=== PATIENT | female | born 1955 ===

== ENCOUNTER 2024-07-04 03:00 | Outpatient (CLI) | payer MEDICARE, SELFPAY ==
[2024-07-04 07:38] LABS: Abs Immature Grans 0.03 10^3/uL (0.0-0.06); Absolute Basophil Count 0.04 10^3/uL (0.0-0.2); Absolute Eosinophil Count 0.14 10^3/uL (0.0-0.7); Absolute Lymphocyte Count 0.36 10^3/uL (1.2-3.4); Absolute Monocyte Count 0.36 10^3/uL (0.1-0.8); Absolute Neutrophil Count 3.18 10^3/uL (1.2-6.7); Eosinophils % 3.4 %; HCT 42.2 % (36.0-46.0); HGB 13.7 g/dL (11.2-15.7); Immature Grans % 0.7 %; Lymphocytes % 8.8 %; MCH 30.4 pg (27.0-33.0); MCHC 32.5 % (32.0-36.0); MCV 94 fL (80-95); MPV 9.9 fL (8.0-11.0); Monocytes % 8.8 %; Neutrophils % 77.3 %; Platelet Count 283 10^3/uL (130-400); RBC 4.51 10^6/uL (3.93-5.22); RDW-SD 44.5 fL; WBC 4.11 10^3/uL (4.4-10.8)
[2024-07-04 08:01] LABS: ALT 27 U/L (14-59); AST 16 U/L (15-37); Albumin 3.9 g/dL (3.4-5.0); Alkaline Phosphatase 91 U/L (46-116); Anion Gap 6.1 mmol/L (3-11); BUN 11 mg/dL (7-18); Bilirubin, Total 0.3 mg/dL (0.2-1.0); CO2 29.9 mmol/L (21.0-32.0); CREATININE 0.9 mg/dL (0.55-1.02); Calcium 9.4 mg/dL (8.5-10.1); Chloride 108 mmol/L (98-107); Estimated GFR 70.07 (mL/min/1.73m2); Glucose 99 mg/dL (74-106); Magnesium 2.2 mg/dL (1.8-2.4); Potassium 4.3 mmol/L (3.5-5.1); Sodium 144 mmol/L (136-145); TSH 2.06 uIU/mL (0.36-3.74); Total Protein 7.3 g/dL (6.4-8.2)
[2024-07-04 18:32] LABS: T4, Free 1.1 ng/dL (0.8-2.2)
== END 2024-07-04 03:01 | disposition home or self-care (01) ==
PROVIDERS: Visit Provider Internal Medicine Medical Oncology
DX: Z79.899 Other long term (current) drug therapy (principal); C92.10 Chronic myeloid leukemia, BCR/ABL-positive, not having achieved remission; C34.92 Malignant neoplasm of unspecified part of left bronchus or lung; C79.31 Secondary malignant neoplasm of brain
CPT/HCPCS: 36415; 80053; 81206; 83735; 84439; 84443; 85025

== ENCOUNTER 2024-07-24 09:18 | Outpatient (CLI) | payer MEDICARE, SELFPAY ==
[2024-07-24 09:24] LABS: Abs Immature Grans 0.04 10^3/uL (0.0-0.06); Absolute Basophil Count 0.03 10^3/uL (0.0-0.2); Absolute Eosinophil Count 0.08 10^3/uL (0.0-0.7); Absolute Lymphocyte Count 0.26 10^3/uL (1.2-3.4); Absolute Monocyte Count 0.71 10^3/uL (0.1-0.8); Absolute Neutrophil Count 2.97 10^3/uL (1.2-6.7); Basophils % 0.7 %; HCT 34.6 % (36.0-46.0); HGB 11.4 g/dL (11.2-15.7); Lymphocytes % 6.4 %; MCH 31.1 pg (27.0-33.0); MCHC 32.9 % (32.0-36.0); MCV 95 fL (80-95); MPV 9.3 fL (8.0-11.0); Monocytes % 17.4 %; Neutrophils % 72.5 %; Platelet Count 286 10^3/uL (130-400); RBC 3.66 10^6/uL (3.93-5.22); RDW 13.7 % (11.7-14.6); RDW-SD 45.3 fL; WBC 4.09 10^3/uL (4.4-10.8)
[2024-07-24 09:48] LABS: ALT 36 U/L (14-59); AST 22 U/L (15-37); Albumin 3.5 g/dL (3.4-5.0); Alkaline Phosphatase 111 U/L (46-116); Anion Gap 10.1 mmol/L (3-11); BUN 8 mg/dL (7-18); Bilirubin, Total 0.3 mg/dL (0.2-1.0); CO2 28.9 mmol/L (21.0-32.0); CREATININE 0.8 mg/dL (0.55-1.02); Calcium 9.7 mg/dL (8.5-10.1); Chloride 104 mmol/L (98-107); Estimated GFR 80.71 (mL/min/1.73m2); Glucose 111 mg/dL (74-106); Sodium 143 mmol/L (136-145); TSH 2.07 uIU/mL (0.36-3.74); Total Protein 7.3 g/dL (6.4-8.2)
== END 2024-07-24 09:19 | disposition home or self-care (01) ==
LOC: LBO 09:19
PROVIDERS: Visit Provider Internal Medicine Medical Oncology
DX: Z79.899 Other long term (current) drug therapy (principal); C34.92 Malignant neoplasm of unspecified part of left bronchus or lung; C79.31 Secondary malignant neoplasm of brain
CPT/HCPCS: 36415; 80053; 83735; 84439; 84443; 85025

== ENCOUNTER 2024-08-14 03:22 | Outpatient (CLI) | payer MEDICARE, SELFPAY ==
[2024-08-14 09:05] LABS: Abs Immature Grans 0.02 10^3/uL (0.0-0.06); Absolute Basophil Count 0.03 10^3/uL (0.0-0.2); Absolute Eosinophil Count 0.08 10^3/uL (0.0-0.7); Absolute Lymphocyte Count 0.24 10^3/uL (1.2-3.4); Absolute Monocyte Count 0.48 10^3/uL (0.1-0.8); Absolute Neutrophil Count 2.16 10^3/uL (1.2-6.7); Eosinophils % 2.7 %; HCT 32.5 % (36.0-46.0); HGB 10.5 g/dL (11.2-15.7); Immature Grans % 0.7 %; MCHC 32.3 % (32.0-36.0); MCV 99 fL (80-95); MPV 8.6 fL (8.0-11.0); Monocytes % 15.9 %; Neutrophils % 71.7 %; Platelet Count 284 10^3/uL (130-400); RBC 3.28 10^6/uL (3.93-5.22); RDW 16.1 % (11.7-14.6); RDW-SD 55.8 fL; WBC 3.01 10^3/uL (4.4-10.8)
[2024-08-14 09:38] LABS: ALT 27 U/L (14-59); AST 19 U/L (15-37); Albumin 3.5 g/dL (3.4-5.0); Alkaline Phosphatase 90 U/L (46-116); Anion Gap 5.8 mmol/L (3-11); BUN 11 mg/dL (7-18); Bilirubin, Total 0.2 mg/dL (0.2-1.0); CO2 30.2 mmol/L (21.0-32.0); CREATININE 0.8 mg/dL (0.55-1.02); Calcium 9.3 mg/dL (8.5-10.1); Chloride 105 mmol/L (98-107); Estimated GFR 80.71 (mL/min/1.73m2); FREE T4 0.89 ng/dL (0.76-1.46); Glucose 90 mg/dL (74-106); Magnesium 1.9 mg/dL (1.8-2.4); Potassium 4.2 mmol/L (3.5-5.1); Sodium 141 mmol/L (136-145); TSH 2.53 uIU/mL (0.36-3.74)
== END 2024-08-14 03:23 | disposition home or self-care (01) ==
LOC: LBO 03:22
PROVIDERS: Visit Provider Internal Medicine Medical Oncology
DX: Z79.899 Other long term (current) drug therapy (principal); C34.92 Malignant neoplasm of unspecified part of left bronchus or lung; C79.31 Secondary malignant neoplasm of brain
CPT/HCPCS: 36415; 80053; 83735; 84439; 84443; 85025

== ENCOUNTER 2024-09-04 04:36 | Outpatient (CLI) | payer MEDICARE, SELFPAY ==
[2024-09-04 09:08] LABS: Abs Immature Grans 0.02 10^3/uL (0.0-0.06); Absolute Basophil Count 0.03 10^3/uL (0.0-0.2); Absolute Eosinophil Count 0.12 10^3/uL (0.0-0.7); Absolute Lymphocyte Count 0.25 10^3/uL (1.2-3.4); Absolute Monocyte Count 0.45 10^3/uL (0.1-0.8); Absolute Neutrophil Count 2.64 10^3/uL (1.2-6.7); Basophils % 0.9 %; Eosinophils % 3.4 %; HCT 34.6 % (36.0-46.0); HGB 11.4 g/dL (11.2-15.7); Immature Grans % 0.6 %; Lymphocytes % 7.1 %; MCH 31.8 pg (27.0-33.0); MCHC 32.9 % (32.0-36.0); MCV 97 fL (80-95); MPV 9.2 fL (8.0-11.0); Monocytes % 12.8 %; Neutrophils % 75.2 %; Platelet Count 314 10^3/uL (130-400); RBC 3.58 10^6/uL (3.93-5.22); RDW 14.7 % (11.7-14.6); RDW-SD 52.9 fL; WBC 3.51 10^3/uL (4.4-10.8)
[2024-09-04 09:34] LABS: ALT 20 U/L (14-59); AST 21 U/L (15-37); Albumin 3.7 g/dL (3.4-5.0); Alkaline Phosphatase 89 U/L (46-116); Anion Gap 7.1 mmol/L (3-11); BUN 10 mg/dL (7-18); Bilirubin, Total 0.4 mg/dL (0.2-1.0); CO2 28.9 mmol/L (21.0-32.0); Calcium 9.5 mg/dL (8.5-10.1); Chloride 104 mmol/L (98-107); Estimated GFR 61.75 (mL/min/1.73m2); FREE T4 1.08 ng/dL (0.76-1.46); Glucose 101 mg/dL (74-106); Potassium 3.9 mmol/L (3.5-5.1); Sodium 140 mmol/L (136-145); TSH 2.07 uIU/mL (0.36-3.74); Total Protein 7.5 g/dL (6.4-8.2)
== END 2024-09-04 04:37 | disposition home or self-care (01) ==
LOC: LBO 04:36
PROVIDERS: Visit Provider Internal Medicine Medical Oncology
DX: Z79.899 Other long term (current) drug therapy (principal); C34.92 Malignant neoplasm of unspecified part of left bronchus or lung; C79.31 Secondary malignant neoplasm of brain
CPT/HCPCS: 36415; 80053; 83735; 84439; 84443; 85025

== ENCOUNTER 2024-09-25 13:21 | Outpatient (CLI) | payer MEDICARE, SELFPAY ==
[2024-09-25 13:18] LABS: Abs Immature Grans 0.03 10^3/uL (0.0-0.06); Absolute Basophil Count 0.04 10^3/uL (0.0-0.2); Absolute Lymphocyte Count 0.38 10^3/uL (1.2-3.4); Absolute Neutrophil Count 4.06 10^3/uL (1.2-6.7); Basophils % 0.8 %; Eosinophils % 3.8 %; HCT 34.3 % (36.0-46.0); HGB 11.1 g/dL (11.2-15.7); Immature Grans % 0.6 %; Lymphocytes % 7.3 %; MCH 30.8 pg (27.0-33.0); MCHC 32.4 % (32.0-36.0); MCV 95 fL (80-95); MPV 9.9 fL (8.0-11.0); Monocytes % 9.6 %; Neutrophils % 77.9 %; Platelet Count 348 10^3/uL (130-400); RDW 13.2 % (11.7-14.6); RDW-SD 46.3 fL; WBC 5.21 10^3/uL (4.4-10.8)
[2024-09-25 13:56] LABS: ALT 23 U/L (14-59); AST 25 U/L (15-37); Albumin 3.7 g/dL (3.4-5.0); Alkaline Phosphatase 86 U/L (46-116); Anion Gap 11.8 mmol/L (3-11); BUN 14 mg/dL (7-18); Bilirubin, Total 0.3 mg/dL (0.2-1.0); CO2 28.2 mmol/L (21.0-32.0); CREATININE 1.5 mg/dL (0.55-1.02); Calcium 8.9 mg/dL (8.5-10.1); Chloride 103 mmol/L (98-107); Estimated GFR 37.96 (mL/min/1.73m2); FREE T4 1.04 ng/dL (0.76-1.46); Glucose 103 mg/dL (74-106); Magnesium 1.8 mg/dL (1.8-2.4); Potassium 3.2 mmol/L (3.5-5.1); Sodium 143 mmol/L (136-145); TSH 2.24 uIU/mL (0.36-3.74); Total Protein 7.6 g/dL (6.4-8.2)
== END 2024-09-25 13:22 | disposition home or self-care (01) ==
LOC: LBO 13:22
PROVIDERS: Visit Provider Internal Medicine Medical Oncology
DX: Z79.899 Other long term (current) drug therapy (principal); C34.92 Malignant neoplasm of unspecified part of left bronchus or lung; C79.31 Secondary malignant neoplasm of brain
CPT/HCPCS: 36415; 80053; 83735; 84439; 84443; 85025

== ENCOUNTER 2024-10-16 12:28 | Outpatient (CLI) | payer MEDICARE, SELFPAY ==
[2024-10-16 12:36] LABS: Abs Immature Grans 0.02 10^3/uL (0.0-0.06); Absolute Basophil Count 0.04 10^3/uL (0.0-0.2); Absolute Eosinophil Count 0.33 10^3/uL (0.0-0.7); Absolute Lymphocyte Count 0.37 10^3/uL (1.2-3.4); Absolute Monocyte Count 0.49 10^3/uL (0.1-0.8); Absolute Neutrophil Count 3.54 10^3/uL (1.2-6.7); Basophils % 0.8 %; Eosinophils % 6.9 %; HCT 31.7 % (36.0-46.0); HGB 10.3 g/dL (11.2-15.7); Immature Grans % 0.4 %; Lymphocytes % 7.7 %; MCH 30.8 pg (27.0-33.0); MCHC 32.5 % (32.0-36.0); MCV 95 fL (80-95); MPV 9.6 fL (8.0-11.0); Monocytes % 10.2 %; Platelet Count 266 10^3/uL (130-400); RBC 3.34 10^6/uL (3.93-5.22); RDW 12.6 % (11.7-14.6); WBC 4.79 10^3/uL (4.4-10.8)
[2024-10-16 13:09] LABS: ALT 26 U/L (14-59); AST 19 U/L (15-37); Albumin 3.6 g/dL (3.4-5.0); Alkaline Phosphatase 73 U/L (46-116); Anion Gap 8.9 mmol/L (3-11); BUN 16 mg/dL (7-18); Bilirubin, Total 0.3 mg/dL (0.2-1.0); CO2 28.1 mmol/L (21.0-32.0); CREATININE 1.3 mg/dL (0.55-1.02); Calcium 8.7 mg/dL (8.5-10.1); Chloride 103 mmol/L (98-107); Estimated GFR 45.07 (mL/min/1.73m2); FREE T4 1.02 ng/dL (0.76-1.46); Glucose 107 mg/dL (74-106); Magnesium 1.7 mg/dL (1.8-2.4); Potassium 3.3 mmol/L (3.5-5.1); Sodium 140 mmol/L (136-145); TSH 2.46 uIU/mL (0.36-3.74); Total Protein 7.1 g/dL (6.4-8.2)
== END 2024-10-16 12:29 | disposition home or self-care (01) ==
LOC: LBO 12:28
PROVIDERS: Visit Provider Internal Medicine Medical Oncology
DX: Z79.899 Other long term (current) drug therapy (principal); C34.92 Malignant neoplasm of unspecified part of left bronchus or lung; C79.31 Secondary malignant neoplasm of brain
CPT/HCPCS: 36415; 80053; 83735; 84439; 84443; 85025

== ENCOUNTER 2024-11-06 03:01 | Outpatient (CLI) | payer MEDICARE, SELFPAY ==
[2024-11-06 10:28] LABS: Abs Immature Grans 0.01 10^3/uL (0.0-0.06); HCT 32.9 % (36.0-46.0); HGB 10.5 g/dL (11.2-15.7); Immature Grans % 0.3 %; MCH 30.3 pg (27.0-33.0); MCHC 31.9 % (32.0-36.0); MCV 95 fL (80-95); MPV 10.0 fL (8.0-11.0); Platelet Count 263 10^3/uL (130-400); RBC 3.47 10^6/uL (3.93-5.22); RDW 12.7 % (11.7-14.6); RDW-SD 44.0 fL; WBC 3.91 10^3/uL (4.4-10.8)
[2024-11-06 11:06] LABS: ALT 26 U/L (14-59); AST 20 U/L (15-37); Albumin 4.0 g/dL (3.4-5.0); Alkaline Phosphatase 66 U/L (46-116); Anion Gap 10.0 mmol/L (3-11); BUN 24 mg/dL (7-18); Bilirubin, Total 0.4 mg/dL (0.2-1.0); CO2 27.0 mmol/L (21.0-32.0); Calcium 9.5 mg/dL (8.5-10.1); Chloride 104 mmol/L (98-107); Estimated GFR 35.13 (mL/min/1.73m2); Glucose 93 mg/dL (74-106); Magnesium 1.9 mg/dL (1.8-2.4); Potassium 4.0 mmol/L (3.5-5.1); Sodium 141 mmol/L (136-145); TSH 1.94 uIU/mL (0.36-3.74); Total Protein 7.5 g/dL (6.4-8.2)
[2024-11-06 14:03] LABS: Calculated LDL 131 mg/dL (<100); Cholesterol 216 mg/dL (<200); HDL Cholesterol 52 mg/dL (>or=50); Triglyceride 167 mg/dL (<150)
== END 2024-11-06 03:02 | disposition home or self-care (01) ==
LOC: LBO 03:02
PROVIDERS: Family Medicine; Visit Provider Internal Medicine Medical Oncology
DX: Z79.899 Other long term (current) drug therapy (principal); C34.92 Malignant neoplasm of unspecified part of left bronchus or lung; I10 Essential (primary) hypertension; E78.2 Mixed hyperlipidemia
CPT/HCPCS: 36415; 80053; 80061; 83735; 84439; 84443; 85025

== ENCOUNTER 2024-11-27 02:51 | Outpatient (CLI) | payer MEDICARE, SELFPAY ==
[2024-11-27 10:16] LABS: Abs Immature Grans 0.01 10^3/uL (0.0-0.06); HCT 35.7 % (36.0-46.0); HGB 11.4 g/dL (11.2-15.7); Immature Grans % 0.2 %; MCH 29.9 pg (27.0-33.0); MCHC 31.9 % (32.0-36.0); MCV 94 fL (80-95); MPV 10.0 fL (8.0-11.0); Platelet Count 289 10^3/uL (130-400); RBC 3.81 10^6/uL (3.93-5.22); RDW 13.1 % (11.7-14.6); RDW-SD 44.9 fL; WBC 4.45 10^3/uL (4.4-10.8)
[2024-11-27 10:42] LABS: ALT 23 U/L (14-59); AST 24 U/L (15-37); Albumin 4.0 g/dL (3.4-5.0); Alkaline Phosphatase 68 U/L (46-116); Anion Gap 5.3 mmol/L (3-11); BUN 16 mg/dL (7-18); Bilirubin, Total 0.3 mg/dL (0.2-1.0); CO2 28.7 mmol/L (21.0-32.0); Calcium 9.3 mg/dL (8.5-10.1); Chloride 106 mmol/L (98-107); Estimated GFR 35.13 (mL/min/1.73m2); Glucose 102 mg/dL (74-106); Magnesium 2.1 mg/dL (1.8-2.4); Potassium 4.5 mmol/L (3.5-5.1); Sodium 140 mmol/L (136-145); TSH 16.78 uIU/mL (0.36-3.74); Total Protein 7.7 g/dL (6.4-8.2)
== END 2024-11-27 02:52 | disposition home or self-care (01) ==
LOC: LBO 02:51
PROVIDERS: Visit Provider Internal Medicine Medical Oncology
DX: Z79.899 Other long term (current) drug therapy (principal); C34.92 Malignant neoplasm of unspecified part of left bronchus or lung
CPT/HCPCS: 36415; 80053; 83735; 84439; 84443; 85025

== ENCOUNTER 2024-12-18 04:40 | Outpatient (CLI) | payer MEDICARE, SELFPAY ==
[2024-12-18 10:55] LABS: Abs Immature Grans 0.02 10^3/uL (0.0-0.06); HCT 33.6 % (36.0-46.0); HGB 10.9 g/dL (11.2-15.7); Immature Grans % 0.3 %; MCH 30.2 pg (27.0-33.0); MCHC 32.4 % (32.0-36.0); MCV 93 fL (80-95); MPV 9.8 fL (8.0-11.0); Platelet Count 275 10^3/uL (130-400); RBC 3.61 10^6/uL (3.93-5.22); RDW 14.0 % (11.7-14.6); RDW-SD 47.8 fL; WBC 6.73 10^3/uL (4.4-10.8)
[2024-12-18 11:29] LABS: ALT 22 U/L (14-59); AST 22 U/L (15-37); Albumin 4.1 g/dL (3.4-5.0); Alkaline Phosphatase 65 U/L (46-116); Anion Gap 9.4 mmol/L (3-11); BUN 21 mg/dL (7-18); Bilirubin, Total 0.5 mg/dL (0.2-1.0); CO2 27.6 mmol/L (21.0-32.0); Calcium 9.6 mg/dL (8.5-10.1); Chloride 104 mmol/L (98-107); Estimated GFR 35.13 (mL/min/1.73m2); Glucose 104 mg/dL (74-106); Magnesium 2.2 mg/dL (1.8-2.4); Potassium 4.3 mmol/L (3.5-5.1); Sodium 141 mmol/L (136-145); TSH 17.01 uIU/mL (0.36-3.74); Total Protein 7.6 g/dL (6.4-8.2)
== END 2024-12-18 04:41 | disposition home or self-care (01) ==
LOC: LBO 04:41
PROVIDERS: Visit Provider Internal Medicine Medical Oncology
DX: Z79.899 Other long term (current) drug therapy (principal); C34.92 Malignant neoplasm of unspecified part of left bronchus or lung; C79.31 Secondary malignant neoplasm of brain
CPT/HCPCS: 36415; 80053; 83735; 84439; 84443; 85025

== ENCOUNTER 2025-01-23 02:31 | Outpatient (RCR) | payer MEDICARE, SELFPAY ==
[2024-12-29 09:09] LABS: Abs Immature Grans 0.03 10^3/uL (0.0-0.06); HCT 31.3 % (36.0-46.0); HGB 10.1 g/dL (11.2-15.7); Immature Grans % 0.5 %; MCH 29.7 pg (27.0-33.0); MCHC 32.3 % (32.0-36.0); MCV 92 fL (80-95); MPV 10.0 fL (8.0-11.0); Platelet Count 296 10^3/uL (130-400); RBC 3.40 10^6/uL (3.93-5.22); RDW 14.0 % (11.7-14.6); RDW-SD 47.1 fL; WBC 6.32 10^3/uL (4.4-10.8)
[2024-12-29 09:49] LABS: ALT 21 U/L (14-59); AST 18 U/L (15-37); Albumin 3.7 g/dL (3.4-5.0); Alkaline Phosphatase 65 U/L (46-116); Anion Gap 8.3 mmol/L (3-11); BUN 13 mg/dL (7-18); Bilirubin, Total 0.4 mg/dL (0.2-1.0); CO2 28.7 mmol/L (21.0-32.0); Calcium 9.2 mg/dL (8.5-10.1); Chloride 105 mmol/L (98-107); Glucose 101 mg/dL (74-106); Magnesium 2.0 mg/dL (1.8-2.4); Potassium 3.8 mmol/L (3.5-5.1); Sodium 142 mmol/L (136-145); TSH 21.14 uIU/mL (0.36-3.74); Total Protein 7.2 g/dL (6.4-8.2)
[2024-12-29] MEDS: Normal Saline Flush 10 ML SYR IVP (12:54)
[2025-01-23] MEDS: Normal Saline Flush 10 ML SYR IVP (07:20)
[2025-01-23 07:29] LABS: Abs Immature Grans 0.02 10^3/uL (0.0-0.06); HCT 27.4 % (36.0-46.0); HGB 9.0 g/dL (11.2-15.7); Immature Grans % 0.8 %; MCH 30.5 pg (27.0-33.0); MCHC 32.8 % (32.0-36.0); MCV 93 fL (80-95); MPV 8.9 fL (8.0-11.0); Platelet Count 334 10^3/uL (130-400); RBC 2.95 10^6/uL (3.93-5.22); RDW 14.3 % (11.7-14.6); RDW-SD 43.8 fL; WBC 2.66 10^3/uL (4.4-10.8)
[2025-01-23 08:12] LABS: ALT 24 U/L (14-59); AST 18 U/L (15-37); Albumin 3.8 g/dL (3.4-5.0); Alkaline Phosphatase 60 U/L (46-116); Anion Gap 8.5 mmol/L (3-11); BUN 20 mg/dL (7-18); Bilirubin, Total 0.2 mg/dL (0.2-1.0); CO2 26.5 mmol/L (21.0-32.0); Calcium 9.0 mg/dL (8.5-10.1); Chloride 106 mmol/L (98-107); Glucose 102 mg/dL (74-106); Magnesium 2.0 mg/dL (1.8-2.4); Potassium 4.2 mmol/L (3.5-5.1); Sodium 141 mmol/L (136-145); TSH 25.62 uIU/mL (0.36-3.74); Total Protein 7.0 g/dL (6.4-8.2)
== END 2025-01-23 23:59 | disposition home or self-care (01) ==
LOC: INF 02:31
PROVIDERS: Visit Provider Internal Medicine Medical Oncology
DX: C79.31 Secondary malignant neoplasm of brain (principal); C34.92 Malignant neoplasm of unspecified part of left bronchus or lung; Z79.899 Other long term (current) drug therapy; Z45.2 Encounter for adjustment and management of vascular access device
CPT/HCPCS: 36591; 80053; 83735; 84439; 84443; 85025

== ENCOUNTER 2025-02-20 01:58 | Outpatient (RCR) | payer MEDICARE, SELFPAY ==
[2025-01-31 06:59] LABS: Abs Immature Grans 0.00 10^3/uL (0.0-0.06); HCT 25.4 % (36.0-46.0); HGB 8.4 g/dL (11.2-15.7); Immature Grans % 0.0 %; MCH 30.4 pg (27.0-33.0); MCHC 33.1 % (32.0-36.0); MCV 92 fL (80-95); MPV 9.9 fL (8.0-11.0); Platelet Count 170 10^3/uL (130-400); RBC 2.76 10^6/uL (3.93-5.22); RDW 13.7 % (11.7-14.6); RDW-SD 44.3 fL
[2025-01-31] MEDS: Normal Saline Flush 10 ML SYR IVP (07:16)
[2025-01-31 07:17] LABS: RBC Morphology Normal
[2025-01-31 07:19] LABS: ALT 28 U/L (14-59); AST 19 U/L (15-37); Albumin 4.0 g/dL (3.4-5.0); Alkaline Phosphatase 62 U/L (46-116); Anion Gap 8.7 mmol/L (3-11); BUN 26 mg/dL (7-18); Bilirubin, Total 0.5 mg/dL (0.2-1.0); CO2 27.3 mmol/L (21.0-32.0); Calcium 9.1 mg/dL (8.5-10.1); Chloride 105 mmol/L (98-107); Glucose 103 mg/dL (74-106); Magnesium 1.9 mg/dL (1.8-2.4); Potassium 3.8 mmol/L (3.5-5.1); Sodium 141 mmol/L (136-145); TSH 24.56 uIU/mL (0.36-3.74); Total Protein 6.8 g/dL (6.4-8.2)
[2025-01-31 08:08] LABS: WBC 0.97 10^3/uL (4.4-10.8)
[2025-02-12] MEDS: Normal Saline Flush 10 ML SYR IVP (10:29)
[2025-02-12 10:40] LABS: Abs Immature Grans 0.01 10^3/uL (0.0-0.06); HCT 22.9 % (36.0-46.0); HGB 7.6 g/dL (11.2-15.7); MCH 31.1 pg (27.0-33.0); MCHC 33.2 % (32.0-36.0); MCV 94 fL (80-95); MPV 9.2 fL (8.0-11.0); Platelet Count 212 10^3/uL (130-400); RBC 2.44 10^6/uL (3.93-5.22); RDW 14.2 % (11.7-14.6); RDW-SD 44.7 fL
[2025-02-12 11:05] LABS: Immature Grans % 0.0 %
[2025-02-12 11:06] LABS: Anisocytosis 2+; Microcytosis 1+
[2025-02-12 11:15] LABS: ALT 23 U/L (14-59); AST 19 U/L (15-37); Albumin 4.0 g/dL (3.4-5.0); Alkaline Phosphatase 57 U/L (46-116); Anion Gap 11.5 mmol/L (3-11); BUN 17 mg/dL (7-18); Bilirubin, Total 0.2 mg/dL (0.2-1.0); CO2 24.5 mmol/L (21.0-32.0); Calcium 9.8 mg/dL (8.5-10.1); Chloride 103 mmol/L (98-107); Glucose 97 mg/dL (74-106); Magnesium 2.1 mg/dL (1.8-2.4); Potassium 4.3 mmol/L (3.5-5.1); Sodium 139 mmol/L (136-145); TSH 10.11 uIU/mL (0.36-3.74); Total Protein 7.1 g/dL (6.4-8.2); WBC 1.30 10^3/uL (4.4-10.8)
[2025-02-20] MEDS: Normal Saline Flush 10 ML SYR IVP (07:10)
[2025-02-20 07:23] LABS: Abs Immature Grans 0.02 10^3/uL (0.0-0.06); HCT 24.7 % (36.0-46.0); HGB 8.0 g/dL (11.2-15.7); Immature Grans % 0.7 %; MCH 31.5 pg (27.0-33.0); MCHC 32.4 % (32.0-36.0); MCV 97 fL (80-95); MPV 9.0 fL (8.0-11.0); Platelet Count 349 10^3/uL (130-400); RBC 2.54 10^6/uL (3.93-5.22); RDW 16.0 % (11.7-14.6); RDW-SD 55.6 fL; WBC 2.92 10^3/uL (4.4-10.8)
[2025-02-20 07:47] LABS: ALT 24 U/L (14-59); AST 17 U/L (15-37); Albumin 3.8 g/dL (3.4-5.0); Alkaline Phosphatase 54 U/L (46-116); Anion Gap 8.5 mmol/L (3-11); BUN 22 mg/dL (7-18); Bilirubin, Total 0.3 mg/dL (0.2-1.0); CO2 28.5 mmol/L (21.0-32.0); Calcium 9.4 mg/dL (8.5-10.1); Chloride 105 mmol/L (98-107); Glucose 95 mg/dL (74-106); Magnesium 2.1 mg/dL (1.8-2.4); Potassium 4.4 mmol/L (3.5-5.1); Sodium 142 mmol/L (136-145); TSH 10.76 uIU/mL (0.36-3.74); Total Protein 7.1 g/dL (6.4-8.2)
== END 2025-02-23 23:59 | disposition home or self-care (01) ==
LOC: INF 01:58
PROVIDERS: Visit Provider Internal Medicine Medical Oncology
DX: C34.92 Malignant neoplasm of unspecified part of left bronchus or lung (principal); C79.31 Secondary malignant neoplasm of brain; Z79.899 Other long term (current) drug therapy; Z45.2 Encounter for adjustment and management of vascular access device
CPT/HCPCS: 36591; 80053; 83735; 84439; 84443; 85025

== ENCOUNTER 2025-03-19 03:25 | Outpatient (RCR) | payer MEDICARE, SELFPAY ==
[2025-03-12 09:05] LABS: Abs Immature Grans 0.12 10^3/uL (0.0-0.06); Immature Grans % 1.8 %; MCH 32.2 pg (27.0-33.0); MCHC 32.2 % (32.0-36.0); MCV 100 fL (80-95); MPV 8.9 fL (8.0-11.0); RBC 1.99 10^6/uL (3.93-5.22); RDW 16.2 % (11.7-14.6); RDW-SD 55.1 fL; WBC 6.69 10^3/uL (4.4-10.8)
[2025-03-12] MEDS: Normal Saline Flush 10 ML SYR IVP (09:05)
[2025-03-12 09:16] LABS: HCT 19.9 % (36.0-46.0); HGB 6.4 g/dL (11.2-15.7)
[2025-03-12 09:25] LABS: Magnesium 1.9 mg/dL (1.6-2.6)
[2025-03-12 09:27] LABS: ALT 14 U/L (10-49); AST 17 U/L (<34); Albumin 4.3 g/dL (3.4-5.0); Alkaline Phosphatase 68 U/L (46-116); Anion Gap 8.8 mmol/L (3-11); BUN 17 mg/dL (9-23); Bilirubin, Total 0.30 mg/dL (0.2-1.2); CO2 24.2 mmol/L (20.0-31.0); Calcium 9.3 mg/dL (8.3-10.6); Chloride 107 mmol/L (98-107); Glucose 126 mg/dL (74-106); Potassium 4.3 mmol/L (3.5-5.1); Sodium 140 mmol/L (136-145); Total Protein 6.8 g/dL (5.7-8.2)
[2025-03-12 09:31] LABS: TSH 10.44 uIU/mL (0.55-4.78)
[2025-03-12 09:54] LABS: Platelet Count 639 10^3/uL (130-400)
[2025-03-12 09:55] LABS: Anisocytosis 2+; Macrocytosis 1+; Polychromasia Present
[2025-03-12 12:29] VITALS: BP 121/79; PULSE 75; RESP 17; TEMP 36.2; O2SAT 100
[2025-03-12 12:45] VITALS: BP 108/62; PULSE 72; RESP 17; TEMP 36.1; O2SAT 99
[2025-03-12 13:00] VITALS: BP 110/70; PULSE 73; RESP 17; TEMP 36.1; O2SAT 97
[2025-03-12 13:30] VITALS: BP 122/75; PULSE 75; RESP 27; TEMP 36.1; O2SAT 99
[2025-03-12 14:20] VITALS: BP 115/72; PULSE 70; RESP 17; TEMP 36.1; O2SAT 100
[2025-03-13 08:58] VITALS: BP 124/79; PULSE 71; RESP 18; TEMP 36; O2SAT 100
[2025-03-13] MEDS: Normal Saline Flush 10 ML SYR IVP (09:00)
[2025-03-13 09:15] VITALS: BP 113/81; PULSE 69; RESP 17; TEMP 36; O2SAT 100
[2025-03-13 09:30] VITALS: BP 114/75; PULSE 74; RESP 17; TEMP 35.8; O2SAT 98
[2025-03-13 10:00] VITALS: BP 119/71; PULSE 82; RESP 18; TEMP 36.5; O2SAT 93
[2025-03-13 10:35] VITALS: BP 136/75; PULSE 73; RESP 17; TEMP 36.1; O2SAT 98
[2025-03-19 08:37] LABS: Abs Immature Grans 0.03 10^3/uL (0.0-0.06); HCT 29.5 % (36.0-46.0); HGB 9.6 g/dL (11.2-15.7); Immature Grans % 1.0 %; MCH 31.7 pg (27.0-33.0); MCHC 32.5 % (32.0-36.0); MCV 97 fL (80-95); MPV 9.2 fL (8.0-11.0); Platelet Count 498 10^3/uL (130-400); RBC 3.03 10^6/uL (3.93-5.22); RDW 17.4 % (11.7-14.6); RDW-SD 60.9 fL; WBC 2.91 10^3/uL (4.4-10.8)
[2025-03-19] MEDS: Normal Saline Flush 10 ML SYR IVP (08:58)
[2025-03-19 08:59] LABS: Magnesium 2.0 mg/dL (1.6-2.6); TSH 5.22 uIU/mL (0.55-4.78)
[2025-03-19 09:00] LABS: ALT 17 U/L (10-49); AST 20 U/L (<34); Albumin 4.5 g/dL (3.4-5.0); Alkaline Phosphatase 60 U/L (46-116); Anion Gap 8.2 mmol/L (3-11); BUN 23 mg/dL (9-23); Bilirubin, Total 0.30 mg/dL (0.2-1.2); CO2 27.8 mmol/L (20.0-31.0); Calcium 9.9 mg/dL (8.3-10.6); Chloride 107 mmol/L (98-107); Glucose 93 mg/dL (74-106); Potassium 4.6 mmol/L (3.5-5.1); Sodium 143 mmol/L (136-145); Total Protein 7.1 g/dL (5.7-8.2)
== END 2025-03-25 23:59 | disposition home or self-care (01) ==
LOC: INF 03:25
PROVIDERS: Visit Provider Internal Medicine Medical Oncology
DX: D64.9 Anemia, unspecified (principal); C34.92 Malignant neoplasm of unspecified part of left bronchus or lung; Z79.899 Other long term (current) drug therapy
CPT/HCPCS: 36415; 36430; 36591; 80053; 86850; 86900; 86901; 86920; 96523; 83735; 84439; 84443; 85025; P9016

== ENCOUNTER 2025-04-09 00:38 | Outpatient (RCR) | payer MEDICARE, SELFPAY ==
[2025-04-09] VITALS (8 sets, daily range): BP systolic 114–136; BP diastolic 74–82; PULSE 65–78; RESP 16–18; TEMP 35–36.9; O2SAT 96–100
[2025-04-09 08:47] LABS: Abs Immature Grans 0.03 10^3/uL (0.0-0.06); HCT 22.2 % (36.0-46.0); HGB 7.2 g/dL (11.2-15.7); Immature Grans % 0.8 %; MCH 31.7 pg (27.0-33.0); MCHC 32.4 % (32.0-36.0); MCV 98 fL (80-95); MPV 9.3 fL (8.0-11.0); Platelet Count 358 10^3/uL (130-400); RBC 2.27 10^6/uL (3.93-5.22); RDW 17.2 % (11.7-14.6); RDW-SD 58.4 fL; WBC 3.77 10^3/uL (4.4-10.8)
[2025-04-09 09:04] LABS: Magnesium 1.8 mg/dL (1.6-2.6)
[2025-04-09 09:06] LABS: ALT 16 U/L (10-49); AST 19 U/L (<34); Albumin 4.2 g/dL (3.2-5.0); Alkaline Phosphatase 60 U/L (46-116); Anion Gap 9.1 mmol/L (3-11); BUN 21 mg/dL (9-23); Bilirubin, Total 0.3 mg/dL (0.2-1.2); CO2 26.9 mmol/L (20.0-31.0); Calcium 9.5 mg/dL (8.3-10.6); Chloride 107 mmol/L (98-107); Glucose 86 mg/dL (74-106); Potassium 4.0 mmol/L (3.5-5.1); Sodium 143 mmol/L (136-145); Total Protein 6.9 g/dL (5.7-8.2)
[2025-04-09 09:08] LABS: TSH 4.71 uIU/mL (0.55-4.78)
[2025-04-09] MEDS: Normal Saline Flush 5 ML SYR IVP (10:13)
== END 2025-04-25 23:59 | disposition home or self-care (01) ==
LOC: INF 00:38
PROVIDERS: Visit Provider Internal Medicine Medical Oncology
DX: D64.81 Anemia due to antineoplastic chemotherapy (principal); C34.92 Malignant neoplasm of unspecified part of left bronchus or lung; C79.31 Secondary malignant neoplasm of brain; Z79.899 Other long term (current) drug therapy; Z45.2 Encounter for adjustment and management of vascular access device; T45.1X5A Adverse effect of antineoplastic and immunosuppressive drugs, initial encounter
CPT/HCPCS: 36430; 36591; 80053; 86850; 86900; 86901; 86920; 83735; 84439; 84443; 85025; P9016